=== PATIENT | female | born 1985 | race Two or more races ===

== ENCOUNTER 2025-10-14 09:23 | Observation (INO) | payer MEDICAID ==
--- NOTE | 2025-10-14 10:38 | DVH ---
BIOPHYSICAL PROFILE HISTORY: decreased movement Comparison Study: None TECHNIQUE: Multiple real-time grayscale sonographic images through the gravid uterus of the fetus with duplex Doppler color flow and M-mode spectral analysis FINDINGS: BIOPHYSICAL PROFILE: breathing score: 2 movement score: 2 tone score: 2 Quantitative VANGIE score: 2 (VANGIE: 13.69 Cm.) Total score: 8 The cervix is closed 3.48 cm Single live fetus in cephalic presentation. heart rate 133.11 beats per minute. Grade 1, anterior/fundal placenta without previa or abruption IMPRESSION: Biophysical profile score: 8
--- NOTE | 2025-10-14 11:56 | DVHDS2 ---
Physician Discharge Progress N Final Diagnosis: sep movement 34 wks Operations or Procedures: Operations or Procedures nst reactive reviwed,sono Condition on Discharge: Good Disposition: Home Discharge Instructions: Diet: Regular Activity: No Restrictions, As Tolerated Medications: na Follow Up Care: Specialist: 2d Discharge Statement: "Patient was advised to return to the ER or call 911 if any headaches, dizziness, shortness of breath, chest pain, abdominal pain, bleeding, fevers, or worsening of medical condition. Patient was counseled about treatment plan, medications, possible side effects, patientverbalized understanding. All questions were answered to the best of my ability. This discharge took greater then 30 minutes in planning, reviewing documentation, counseling the patient, and discussing with other team members." Visit Coding OBGYN Date of Service: Oct 14, 2025 Billing Provider: NIKKO KHAN DO MINE SUPERINTENDENT Common Visit Codes: 98565-[id number] OBS CARE (HIGH) MINE SUPERINTENDENT Procedure Codes: 50987-69- NON-STRESS TEST NIKKO KHAN DO Oct 14, 2025 11:56
== END 2025-10-14 11:03 | disposition home or self-care (01) ==
LOC: LDRP 09:23
PROVIDERS: ADMIT Obstetrics & Gynecology; ATTEND Obstetrics & Gynecology
DX: O36.8130 Decreased fetal movements, third trimester, not applicable or unspecified (principal); Z3A.34 34 weeks gestation of pregnancy; Z98.890 Other specified postprocedural states
CPT/HCPCS: 59025; 76819; 81002; 94760; A4649; G0378